=== PATIENT | female | born 1995 | race Caucasian/White ===

== ENCOUNTER → 2017-07-20 | Outpatient (CLI) | payer BC, OTHER ==
[2017-07-21 11:13] LABS: Alpha Fetoprotein (M.O.M) 1.28; B-HCG (M.O.M.) 0.41; Gestational Age (days) 4; Human Chorionic Gonadotropin 6.3 IU/mL; Inhibin A (M.O.M.) 0.93; Maternal Age at EDD (Yrs) 22; Smoker No
== END | disposition home or self-care (01) ==
LOC: LABWHC1 12:33
PROVIDERS: ATTEND Obstetrics & Gynecology
DX: Z34.82 Encounter for supervision of other normal pregnancy, second trimester (principal); Z3A.00 Weeks of gestation of pregnancy not specified
CPT/HCPCS: 36415; 82105; 82677; 84702; 86336

== ENCOUNTER → 2017-08-25 | Outpatient (CLI) | payer BC, OTHER ==
[2017-08-25 14:33] LABS: HCT 31.4 % (34.0-46.0); HGB 9.4 gm/dL (11.4-16.0); Hypochromasia Marked; MCH 23.8 pg (25.0-35.0); MCHC 29.9 g/dL (31.0-37.0); MCV 79.4 fL (80.0-100.0); Mean Platelet Volume 6.5; Platelet Count 265 k/uL (150-450); RBC 3.95 m/uL (3.80-5.40); RDW 15.8 % (11.5-15.5); WBC 9.4 k/uL (3.8-10.6)
== END | disposition home or self-care (01) ==
LOC: LABWHC1 12:56
PROVIDERS: ATTEND Obstetrics & Gynecology
DX: Z34.82 Encounter for supervision of other normal pregnancy, second trimester (principal); Z3A.00 Weeks of gestation of pregnancy not specified
CPT/HCPCS: 36415; 82950; 85027

== ENCOUNTER 2017-11-27 23:10 | Outpatient (CLI) | payer BC, OTHER ==
[2017-11-27 23:58] VITALS: BP 137/60; PULSE 86; RESP 15; TEMP 97.3
--- NOTE | 2017-11-29 18:27 | P.MSEPDOC ---
Presenting Problems - Arrival Data Date of Arrival on Unit: 11/27/17 Time of Arrival on Unit: 23:13 Mode of Transport: Wheelchair - Complaint OB-Reason for Admission/Chief Complaint: Observation/Evaluation Comment: complaints of increased ankle swelling and lost her mucous plug Medical History - Information : 3 Para: 2 Term: 2 : 0 Abortions: Spontaneous or Elective: 0 Number of Living Children: 2 - Gestational Age Gestational Age by ASH (wks/days): 38 Weeks and 2 Days Review of Systems - Review of Systems Constitutional: No problems Breast: No problems ENT: No problems Cardiovascular: No problems Respiratory: No problems Gastrointestinal: No problems Genitourinary: No problems Musculoskeletal: No problems Neurological: No problems Skin: No problems Vital Signs - Temperature Temperature: 97.3 F Temperature Source: Temporal Artery Scan - Pulse Pulse Oximetery Pulse Rate: 86 Pulse Assessment Method: Automatic Cuff - Respirations Respiratory Rate: 15 Oxygen Delivery Method: Room Air - Blood Pressure Right Arm Blood Pressure: 137/60 Blood Pressure Mean: 85 Blood Pressure Source: Automatic Cuff Medical Screen Scoring (Pre) - Cervical Exam Dilation: 1-3 cm = 1 Effacement: More than 50% = 2 Membranes: Intact - Uterine Contractions Frequency: N/A Duration: N/A Intensity: N/A - Maternal Vital Signs Maternal Temperature: N/A Maternal Blood Pressure: N/A Signs of Preeclampsia: N/A Maternal Respirations: N/A - Pain Assessment Pain Location and Character: Abdomen Pain Scale Used: Numeric (1 - 10) Pain Intensity: 3 Pain Management Goal: 2 Pain Description: *Acute, Cramping Pain Radiation Location: none Pain Frequency: Intermittent Pain Duration: 1 Pain Duration Units: Days Pain Behavior: None Exhibited Effects of Pain: none Pain Aggravating Factors: Contractions - Maternal Trauma Maternal Trauma: N/A - Assessment Baseline FHR: 130 Heart Rate - NICHD Category: Category I (Normal) = 0 NST: Reactive Position: N/A Station: N/A - Total Score Total Score (Pre): 3 - Level of Risk Level of Risk: Low (0-5) Physician Notification (Post) - Physician Notified Physician Notified Date: 11/28/17 Physician Notified Time: 00:02 Physician/Practitioner Notified:: Dr Alexander New Order Received: Yes Disposition - Disposition OB Disposition: Discharge to home Discharge Date: 11/28/17 Discharge Time: 00:10 I agree with the RN Medical Screening Exam: Yes Risk & Benefit of care provided described in d/c instruction: Yes Diagnosis: RELATED CONDITIONS, UNSPECIFIED, THIRD TRIMESTER
== END 2017-11-28 00:10 | disposition home or self-care (01) ==
LOC: FBPOP 23:10
PROVIDERS: ATTEND Obstetrics & Gynecology
DX: O26.93 Pregnancy related conditions, unspecified, third trimester (principal); Z3A.38 38 weeks gestation of pregnancy
CPT/HCPCS: 59025; 84112; 99213

== ENCOUNTER 2017-12-05 05:57 | Inpatient (IN) | payer BC, OTHER ==
--- NOTE | 2017-12-04 21:18 | P.HPOB ---
History of Present Illness H&P Date: 12/04/17 Chief Complaint: Induction of labor This is a 22-year-old female 3 para 2 with an estimated date of confinement of 12/10/2017, estimated gestational age of 39-2/7 weeks, who presents to labor and delivery for induction of labor. She admits to good movement. She has been feeling frequent contractions and pressure. Her course has been essentially uncomplicated. labs: Hepatitis B surface antigen-negative Rubella-immune Blood type-O+ Antibody screen-negative RPR-nonreactive HIV-nonreactive Hemoglobin-10.9 Random glucose-69 Quad screen-negative Obstetrical ultrasound-normal anatomy One hour Glucola-113 Group B streptococcus-negative Obstetrical history: . History of 2 vaginal deliveries. Gynecologic history: No history of sexually transmitted diseases. Social history: She is . She is currently attending college. Review of Systems Constitutional: Denies chills, Denies fever Eyes: denies blurred vision, denies pain Ears, nose, mouth and throat: Denies headache, Denies sore throat Cardiovascular: Denies chest pain, Denies shortness of breath Respiratory: Denies cough Gastrointestinal: Reports abdominal pain (Irregular contractions) Genitourinary: Reports pelvic pain, Reports Musculoskeletal: Reports low back pain Integumentary: Denies pruritus, Denies rash Neurological: Denies numbness, Denies weakness Psychiatric: Reports depression, Denies anxiety Past Medical History Past Medical History: Asthma Additional Past Medical History / Comment(s): asthma as child History of Any Multi-Drug Resistant Organisms: None Reported Past Surgical History: Cholecystectomy Past Anesthesia/Blood Transfusion Reactions: No Reported Reaction Past Psychological History: Depression Smoking Status: Never smoker Past Alcohol Use History: None Reported Past Drug Use History: None Reported - Past Family History Mother Family Medical History: Cancer (Cervical cancer) Medications and Allergies Home Medications Medication Instructions Recorded Confirmed Type Pnv,Calcium 72/Iron/Folic Acid 1 tab PO DAILY 09/28/15 11/27/17 History [ Plus Tablet] Allergies Allergy/AdvReac Type Severity Reaction Status Date / Time Penicillins Allergy Itching Verified 11/27/17 23:21 Exam Osteopathic Statement: *. No significant issues noted on an osteopathic structural exam other than those noted in the History and Physical/Consult. HEENT: Within normal limits Heart: Regular rate and rhythm Lungs: Clear to auscultation bilaterally Abdomen: Cervix: 3-1/2 cm/70%/-2 station heart tones: 140s by Doppler Extremities: Negative Homans Assessment and Plan (1) 39 weeks gestation of Status: Acute Code(s): Z3A.39 - 39 WEEKS GESTATION OF SNOMED Code( s): 47597681 Plan: Received with oxytocin induction of labor. Expectant management. Epidural anesthesia if desired.
[2017-12-05] MEDS ORDERED: LIDOCAINE 1% 20 ML VIAL (10MG/ML) FOR IV START INTRADERMA PRN (06:12)
[2017-12-05] MEDS ORDERED: LIDOCAINE 1% (PF) 10 MG/ML (30 ML SDV) SQ PRN (06:12)
[2017-12-05] MEDS ORDERED: OXYTOCIN 10 UNIT/ML 1 ML VIAL IM PRN (06:12)
[2017-12-05] MEDS ORDERED: CARBOPROST TROMETHAMINE 250 MCG/ML 1 ML AMP IM PRN (06:12)
[2017-12-05] MEDS ORDERED: OXYTOCIN 20 UNITS/1000 ML NS 1,000 ML IV SCH ×2 (06:12→12:49)
[2017-12-05] MEDS ORDERED: METHYLERGONOVINE 0.2 MG/ML 1 ML AMP IM PRN (06:12)
[2017-12-05] MEDS ORDERED: TERBUTALINE 1 MG/ML VIAL SQ PRN (06:12)
[2017-12-05] MEDS: LACTATED RINGERS 1,000 ML IV SCH ×2 (06:30→08:56)
[2017-12-05 06:38] LABS: Anisocytosis Slight; Basophils % (A) 0 %; Eosinophils # (A) 0.1 k/uL (0-0.7); Eosinophils % (A) 1 %; HCT 33.5 % (34.0-46.0); HGB 10.3 gm/dL (11.4-16.0); Hypochromasia Marked; Lymphocytes % (A) 20 %; MCH 22.2 pg (25.0-35.0); MCHC 30.7 g/dL (31.0-37.0); MCV 72.3 fL (80.0-100.0); Mean Platelet Volume 6.2; Microcytosis Moderate; Monocytes # (A) 0.4 k/uL (0-1.0); Monocytes % (A) 4 %; Neutrophils # (A) 7.4 k/uL (1.3-7.7); Neutrophils % (A) 74 %; Platelet Count 339 k/uL (150-450); RBC 4.63 m/uL (3.80-5.40); RDW 16.3 % (11.5-15.5)
[2017-12-05 06:42] VITALS: BMI 46.0
[2017-12-05] MEDS ORDERED: SODIUM CHLORIDE 0.9% 100 ML BAG ONE (09:02)
[2017-12-05] MEDS ORDERED: BUPIVACAINE (PF) 0.25% 30 ML VIAL ONE (09:02)
[2017-12-05] MEDS ORDERED: fentaNYL (PF) 50 MCG/ML 5 ML AMP ONE (09:02)
[2017-12-05] MEDS ORDERED: ACETAMINOPHEN TAB 325 MG TAB PO PRN (12:49)
[2017-12-05] MEDS ORDERED: diphenhydrAMINE 50 MG/ML 1 ML VIAL IVP PRN ×2 (12:49)
[2017-12-05] MEDS ORDERED: diphenhydrAMINE 25 MG CAP PO PRN (12:49)
[2017-12-05] MEDS ORDERED: diphenhydrAMINE 50 MG CAP PO PRN (12:49)
[2017-12-05] MEDS ORDERED: LANOLIN CREAM 5 GM TUBE TOPICAL PRN (12:49)
[2017-12-05] MEDS ORDERED: ZOLPIDEM 5 MG TAB PO PRN (12:49)
[2017-12-05] MEDS ORDERED: BENZOCAINE/MENTHOL SPRAY 1 GM/SPRAY AEROSOL TOPICAL PRN (12:49)
[2017-12-05] MEDS ORDERED: IBUPROFEN 600 MG TAB PO PRN (12:49)
[2017-12-05] MEDS ORDERED: SIMETHICONE 80 MG CHEWABLE PO PRN (12:49)
[2017-12-05] MEDS ORDERED: WITCH HAZEL 1 EACH MED..PAD TOPICAL PRN (12:49)
[2017-12-05] MEDS ORDERED: HYDROCORTISONE 2.5% RECTAL CREAM 30 GM TUBE RECTAL PRN (12:49)
--- NOTE | 2017-12-05 13:19 | P.PROBDLV ---
Vaginal Delivery Note - . Vaginal Delivery Note: The patient progressed to complete dilation after oxytocin induction of labor and artificial rupture of membranes with clear fluid noted. She did receive epidural anesthesia. Once reaching complete dilation, her bladder was emptied and she began pushing. Infant's head came to a crown. With one further push, the 's head delivered across the perineum and a left occiput anterior position. After gentle traction was applied, the anterior shoulder did not release. Next I swept my fingers along the posterior shoulder and turned the posterior shoulder inward in a clockwise fashion and with one push she was able to deliver the posterior shoulder immediately followed by the anterior shoulder. The remainder the easily delivered and was placed on mother's abdomen. Brisk cry was noted immediately. Nose and mouth were bulb suctioned after delivery. Cord was clamped and cut. A viable male infant was noted with scores of 9 at 1 minute and 9 at 5 minutes and infant weight of 7 lbs. 2 oz. Placenta delivered shortly thereafter, intact, with a three-vessel cord. Uterus contracted well after oxytocin was given and uterine massage was carried out. Inspection of the perineum revealed no perineal lacerations. Estimated blood loss was approximately 100 mL's. Both mother and infant are in stable condition.
[2017-12-05] MEDS: SENNOSIDES-DOCUSATE SODIUM 1 EACH TAB PO SCH (19:53)
--- NOTE | 2017-12-06 05:55 | P.DS ---
Providers Date of admission: 12/05/17 05:57 Expected date of discharge: 12/06/17 Attending physician: Amber Tong Primary care physician: Stated None - Discharge Diagnosis(es) (1) 39 weeks gestation of Current Visit: Yes Status: Acute Hospital Course: This is a 22-year-old female 3 para 2 at 39-2/7 weeks who presented for induction of labor. She underwent oxytocin induction of labor and delivered vaginally a viable male with scores of 9 at 1 minute and 9 at 5 minutes and infant weight of 7 lbs. 2 oz. Her course has been uncomplicated. She is breast-feeding. Lochia is decreasing. Pain is well- controlled with ibuprofen. Vital signs are stable. Abdomen is soft with fundus firm and nontender. Extremity show negative Homans. Impression is status post vaginal delivery day #1. Plan is to discharge home today. Routine instructions are given. She is advised follow-up in the office in 6 weeks for check. She will be given a prescription for ibuprofen and a breast pump. She is advised to call the office if she has any further questions or concerns prior to her appointment time. Procedures: Oxytocin induction of labor Spontaneous vaginal delivery of a viable male on 12/05/2017 Patient Condition at Discharge: Stable Plan - Discharge Summary New Discharge Prescriptions: New Ibuprofen [Motrin] 600 mg PO Q6HR PRN #60 tab PRN Reason: Mild Pain Or Fever >= 100.5 Continue Pnv,Calcium 72/Iron/Folic Acid [ Plus Tablet] 1 tab PO DAILY Discharge Medication List Pnv,Calcium 72/Iron/Folic Acid [ Plus Tablet] 1 tab PO DAILY 09/28/15 [ History] Ibuprofen [Motrin] 600 mg PO Q6HR PRN #60 tab 12/06/17 [Rx] Follow up Appointment(s)/Referral(s): Amber Tong DO [Doctor of Osteopathic Medicine] - 6 Weeks Activity/Diet/Wound Care/Special Instructions: Instructions 1. Do not begin any exercise program for 3 weeks. 2. Do not resume sexual relations for 3 weeks or longer if uncomfortable. 3. You may take tub baths or showers at any time. 4. You may use tampons if desired after 3 weeks. 5. Keep the area of episiotomy (stitches) clean and dry. 6. If you are not nursing, wear a good fitting, supportive bra during the day and limit fluid intake for at least 1 week to prevent breast engorgement. 7. Call the office, [phone], within the next week to make appointment for your 6 week checkup if it has not already been made. 8. Report any of the following occurrences to the doctor promptly: a. Heavy, excessive bleeding b. Chills, fever c. Burning or frequency of urination d. Pain or redness and breasts if nursing e. Increasing pain or swelling in episiotomy (stitches). In addition to the above instructions, the following additional should be followed: 1. No heavy lifting or straining (exercising) until after 6 week checkup. 2. Keep abdominal incision clean and dry: You may wear a dressing if more comfortable. 3. Make office appointment for 10 days after going home or as instructed by her doctor. Discharge Disposition: HOME SELF-CARE
[2017-12-06 08:16] VITALS: BP 110/61; PULSE 92; RESP 18; TEMP 97.6
[2017-12-06] MEDS: SENNOSIDES-DOCUSATE SODIUM 1 EACH TAB PO SCH (08:16)
[2017-12-06 08:32] LABS: Anisocytosis Slight; Basophils % (A) 0 %; Eosinophils # (A) 0.1 k/uL (0-0.7); Eosinophils % (A) 1 %; HCT 29.4 % (34.0-46.0); Hypochromasia Marked; Lymphocytes # (A) 1.7 k/uL (1.0-4.8); Lymphocytes % (A) 19 %; MCH 22.4 pg (25.0-35.0); MCHC 30.8 g/dL (31.0-37.0); MCV 72.9 fL (80.0-100.0); Mean Platelet Volume 6.6; Microcytosis Moderate; Monocytes # (A) 0.4 k/uL (0-1.0); Monocytes % (A) 4 %; Neutrophils # (A) 6.7 k/uL (1.3-7.7); Neutrophils % (A) 74 %; Platelet Count 208 k/uL (150-450); RBC 4.03 m/uL (3.80-5.40); RDW 16.2 % (11.5-15.5)
[2017-12-06] MEDS ORDERED: SODIUM CHLORIDE 0.9% 100 ML BAG ONE (09:02)
[2017-12-06] MEDS ORDERED: BUPIVACAINE (PF) 0.25% 30 ML VIAL ONE (09:02)
[2017-12-06] MEDS ORDERED: fentaNYL (PF) 50 MCG/ML 5 ML AMP ONE (09:02)
== END 2017-12-06 14:00 | disposition home or self-care (01) | DRG 775 ==
LOC: 4FBP 05:57
PROVIDERS: ADMIT Obstetrics & Gynecology; ATTEND Obstetrics & Gynecology
PROC: 3E033VJ Introduction of Other Hormone into Peripheral Vein, Percutaneous Approach (ICD-10-PCS; principal; 2017-12-05)
PROC: 10E0XZZ Delivery of Products of Conception, External Approach (ICD-10-PCS; principal; 2017-12-05)
PROC: 00HU33Z Insertion of Infusion Device into Spinal Canal, Percutaneous Approach (ICD-10-PCS; principal; 2017-12-05)
PROC: 3E0R3NZ Introduction of Analgesics, Hypnotics, Sedatives into Spinal Canal, Percutaneous Approach (ICD-10-PCS; principal; 2017-12-05)
PROC: 10907ZC Drainage of Amniotic Fluid, Therapeutic from Products of Conception, Via Natural or Artificial Opening (ICD-10-PCS; principal; 2017-12-05)
DX: O80 Encounter for full-term uncomplicated delivery (principal); Z37.0 Single live birth; Z3A.39 39 weeks gestation of pregnancy; Z90.49 Acquired absence of other specified parts of digestive tract
CPT/HCPCS: 85025; 88307

== ENCOUNTER → 2018-01-25 | Outpatient (CLI) | payer BC, OTHER ==
[2018-01-25 12:47] LABS: Basophils % (A) 0 %; Eosinophils # (A) 0.1 k/uL (0-0.7); Eosinophils % (A) 2 %; HCT 35.3 % (34.0-46.0); HGB 10.7 gm/dL (11.4-16.0); Hypochromasia Marked; Lymphocytes # (A) 1.1 k/uL (1.0-4.8); Lymphocytes % (A) 19 %; MCH 22.2 pg (25.0-35.0); MCHC 30.2 g/dL (31.0-37.0); MCV 73.6 fL (80.0-100.0); Mean Platelet Volume 6.5; Microcytosis Slight; Monocytes # (A) 0.3 k/uL (0-1.0); Monocytes % (A) 5 %; Neutrophils # (A) 4.1 k/uL (1.3-7.7); Neutrophils % (A) 71 %; Platelet Count 272 k/uL (150-450); RDW 14.9 % (11.5-15.5); WBC 5.8 k/uL (3.8-10.6)
== END | disposition home or self-care (01) ==
LOC: LABPAT 12:08
PROVIDERS: ATTEND Obstetrics & Gynecology
DX: Z01.812 Encounter for preprocedural laboratory examination (principal)
CPT/HCPCS: 36415; 85025

== ENCOUNTER 2018-02-01 06:10 | Day surgery (SDC) | payer BC, OTHER ==
[2018-01-24 15:37] VITALS: BMI 42.5
--- NOTE | 2018-01-31 19:58 | P.HPOB ---
History of Present Illness H&P Date: 01/31/18 Chief Complaint: Family planning This is a 22-year-old female 3 para 3 who presents for laparoscopic bilateral tubal ligation via fulguration for family planning. She recently delivered her last child and wishes permanent sterilization. Obstetrical history: . History of 3 vaginal deliveries. Gynecologic history: No history of sexual transmitted diseases. Review of Systems Constitutional: Denies chills, Denies fever Eyes: denies blurred vision, denies pain Ears, nose, mouth and throat: Denies headache, Denies sore throat Cardiovascular: Denies chest pain, Denies shortness of breath Respiratory: Denies cough Gastrointestinal: Denies abdominal pain, Denies diarrhea, Denies nausea, Denies vomiting Genitourinary: Denies dysuria, Denies hematuria Musculoskeletal: Denies myalgias Integumentary: Denies pruritus, Denies rash Neurological: Denies numbness, Denies weakness Psychiatric: Reports depression Past Medical History Past Medical History: Asthma Additional Past Medical History / Comment(s): Asthma as child. History of Any Multi-Drug Resistant Organisms: None Reported Past Surgical History: Cholecystectomy, Orthopedic Surgery Additional Past Surgical History / Comment(s): Left wrist surgery. Past Anesthesia/Blood Transfusion Reactions: No Reported Reaction Past Psychological History: Depression Smoking Status: Never smoker Past Alcohol Use History: None Reported Past Drug Use History: None Reported - Past Family History Mother Family Medical History: Cancer Medications and Allergies Home Medications Medication Instructions Recorded Confirmed Type Ibuprofen 200 mg PO DAILY PRN 01/24/18 01/24/18 History Allergies Allergy/AdvReac Type Severity Reaction Status Date / Time Penicillins Allergy Unknown Itching Verified 01/24/18 15:25 Exam Osteopathic Statement: *. No significant issues noted on an osteopathic structural exam other than those noted in the History and Physical/Consult. HEENT: Within normal limits Heart: Regular rate and rhythm Lungs: Clear to auscultation bilaterally Abdomen: Soft, nontender Pelvic exam: Uterus anteverted, nontender, with no adnexal masses or tenderness palpated Extremities: Negative Homans Assessment and Plan (1) Family planning Status: Acute Code(s): Z30.09 - ENCOUNTER FOR OTH GENERAL CNSL AND ADVICE ON CONTRACEPTION SNOMED Code(s): 163658420 Plan: Proceed with laparoscopic bilateral tubal ligation via fulguration. I have discussed the risks, benefits, and alternative therapies for the above- mentioned procedure and for both sedation/anesthesia as well as necessary blood products administration, if indicated, as they pertain to this patient. The patient has indicated her understanding and acceptance of the risks and procedures discussed.
[~2018-02-01 06:10] MED LIST: DEXAMETHASONE SOD PHOSPHATE 10 MG/ML 1 ML VIAL IV ONE; HYDROmorphone 0.5 MG/0.5 ML SYRINGE IVP PRN; LACTATED RINGERS 1,000 ML IV SCH; MIDAZOLAM 2 MG/2 ML VIAL IV PRN; ONDANSETRON 4 MG/2 ML VIAL IVP ONE
[2018-02-01] MEDS ORDERED: LIDOCAINE 1% 20 ML VIAL (10MG/ML) FOR IV START INTRADERMA ONE (07:02)
[2018-02-01] MEDS ORDERED: SCOPOLAMINE 1.5MG/72HR PATCH TRANSDERM ONE (07:07)
[2018-02-01] MEDS ORDERED: GLYCOPYRROLATE 0.2 MG/ML 2 ML VIAL ONE (07:28)
[2018-02-01] MEDS ORDERED: PROPOFOL 10 MG/ML 20 ML VIAL IV ONE (07:28)
[2018-02-01] MEDS ORDERED: LIDOCAINE 1% INJ 10MG/ML (20 ML MDV) ONE (07:28)
[2018-02-01] MEDS ORDERED: MIDAZOLAM 2 MG/2 ML VIAL ONE (07:28)
[2018-02-01] MEDS ORDERED: SUCCINYLCHOLINE CHLORIDE 100 MG/5 ML SYR IV ONE (07:28)
[2018-02-01] MEDS ORDERED: ROCURONIUM BROMIDE 10 MG/ML 10 ML VIAL IV ONE (07:28)
[2018-02-01] MEDS ORDERED: KETOROLAC 30 MG/ML 1 ML VIAL ONE (07:28)
[2018-02-01] MEDS ORDERED: fentaNYL (PF) 50 MCG/ML 2 ML AMP ONE (07:28)
[2018-02-01] MEDS ORDERED: HYDROmorphone (PF) 1 MG/ML ONE (07:28)
[2018-02-01] MEDS ORDERED: NEOSTIGMINE 1 MG/ML 10 ML VIAL ONE (07:28)
[2018-02-01] MEDS ORDERED: ROPIVACAINE 5 MG/ML 30 ML VIAL MISCELLANE ONE ×2 (07:51)
--- NOTE | 2018-02-01 08:04 | P.OP ---
Date of Procedure: 02/01/18 Preoperative Diagnosis: Family planning Postoperative Diagnosis: Same Procedure(s) Performed: Laparoscopic bilateral tubal ligation via fulguration Anesthesia: HAYES Surgeon: Amber Tong Estimated Blood Loss (ml): 20 Pathology: none sent Condition: stable Disposition: same day Indications for Procedure: This is a 22-year-old female 3 para 3 who presents for laparoscopic bilateral tubal ligation via fulguration for family planning. She recently delivered her last child and wishes permanent sterilization. Operative Findings: Uterus is anteverted. Normal uterus tubes and ovaries are noted. Right ovary did have a very small simple-appearing cyst noted. Description of Procedure: The patient is taken to the operating room where she is placed in the dorsal lithotomy position. She is prepped and draped in the normal sterile fashion. Examination is performed under anesthesia. Uterus is found to be in a anteverted position. No adnexal masses were palpated. Next a bivalve speculum was placed in the patient's vagina. A single-tooth tenaculum was used to grasp the anterior lip of the cervix. The uterus was sounded to 7 cm. The kroner uterine manipulator was then inserted through the cervix and the balloon was inflated. The single-tooth tenaculum is removed speculum was removed gloves were changed and attention was turned to the abdomen. The infraumbilical fold was grasped in transverse fashion with 2 Allis clamps. A small transverse incision was made with a scalpel. A hemostat was used to carry the incision down to the underlying layer of fascia. A towel clip was placed above the umbilicus for retraction. A 11 mm disposable bladeless trocar was then inserted into the peritoneal cavity under direct visualization. Once inside, pneumoperitoneum was achieved with CO2 gas. The insert was removed and the camera was placed. Intraperitoneal placement was confirmed. No bleeding was noted. Next the patient was placed in Trendelenburg position. A small stab incision was made suprapubically and a 5 mm disposable bladeless trocar was inserted into the peritoneal cavity under direct visualization. Once inside pelvic contents were inspected. Next a bipolar Kleppinger instrument was placed through the inferior trocar and the midportion of each tube was brought away from other structures and completely fulgurated on approximate 2-3 cm segment of each tube. Excellent hemostasis was noted. Pictures was taken. Pneumoperitoneum was released after the inferior trocar was removed under direct visualization. The upper trocar was then removed. The fascial incision was closed with 0 Vicryl suture in interrupted [id number] stitch. The skin incisions were then closed with 4-0 Vicryl suture in a subcuticular fashion. Incisions were injected with half percent Marcaine. Approximately 8 mL were used. Next the kroner uterine manipulator was removed. Minimal bleeding was noted. All sponge and needle counts are correct. The patient is then taken to recovery room in stable condition.
[2018-02-01 08:24] VITALS: TEMP 97.2
[2018-02-01] MEDS ORDERED: LACTATED RINGERS 1,000 ML IV ONE (09:05)
[2018-02-01 09:24] VITALS: RESP 16
[2018-02-01 11:38] VITALS: BP 102/60; PULSE 60
== END 2018-02-01 12:03 | disposition home or self-care (01) ==
LOC: OR 06:10
PROVIDERS: ATTEND Obstetrics & Gynecology
DX: Z30.2 Encounter for sterilization (principal); J45.909 Unspecified asthma, uncomplicated; Z90.49 Acquired absence of other specified parts of digestive tract; F32.9 Major depressive disorder, single episode, unspecified; Z88.0 Allergy status to penicillin; N83.291 Other ovarian cyst, right side
CPT/HCPCS: 81025; 58670; J2250; J1100; J2710; J2405; J2001; J3010; J1885; J1170; J2795; J0330; J2704

== ENCOUNTER → 2021-09-03 | Outpatient (CLI) | payer BC, OTHER ==
--- NOTE | 2021-09-03 11:02 | USB ---
Reason for exam: clinical finding. Physical Findings: A clinical breast exam by your physician is recommended on an annual basis and results should be correlated with mammographic findings. US Breast RT Right complete breast ultrasound includes all four quadrants, the retroareolar region and axilla. Finding demonstrates a 0.7 x 0.4 x 0.7cm lesion at 12 o'clock and a 0.4 x 0.3 x 0.4cm lesion at 3 o'clock. These results were verbally communicated with the patient and result sheet given to the patient on at 09/03/21. ASSESSMENT: Probably benign, BI-RAD 3 RECOMMENDATION: Ultrasound of the right breast in 6 months. Manage patient on a clinical basis.
== END | disposition home or self-care (01) ==
LOC: RADUSWWP 08:55
PROVIDERS: ATTEND Family Medicine
DX: N64.4 Mastodynia (principal)

== ENCOUNTER → 2022-03-16 | Outpatient (CLI) | payer OTHER ==
--- NOTE | 2022-03-16 11:40 | USB ---
Reason for Exam: Clinical finding. Patient History: 2018, Bilateral Reduction. Technique: Method: Whole Breast Handheld. Findings: The whole breast of both breasts, the axilla of both breasts and the retroareolar of both breasts were scanned. Right breast 12:00 consultations with posterior acoustic shadowing noted. Right breast 4:00 in the area of palpable abnormality 8 cm from nipple demonstrates 4 anechoic cysts. The largest measuring up to 10 mm. The cluster of cysts spans approximately 4.3 cm in greatest dimension. Right breast 5:00 20 cm from nipple inserts anechoic cyst with posterior acoustic enhancement Right breast 7:00 20 cm from nipple 2 anechoic cyst with posterior acoustic enhancement. Right breast 8:00 3 cm from nipple is a heterogenous area measuring 1.1 x 0.7 x 1.0 cm which is hyperechoic with suspected layering fluid fluid level findings overall this likely representing prior post reduction surgery changes in the setting of fat necrosis. Left breast 12:00 3 cm from nipple demonstrates anechoic cyst measuring up to 1.2 x 1.9 x 0.9 cm with posterior acoustic enhancement. Left breast 1:00 20 cm from nipple demonstrates anechoic cyst measuring up to 1.2 cm x 0.9 cm with posterior acoustic enhancement. Left breast 3:00 4 cm from nipple with predominantly hypoechoic mass with hyperechoic foci likely representing calcification with some posterior acoustic shadowing. Area measures roughly 1.4 x 7.0 x 1.0 cm given other findings the breast present that necrosis and/or oil cyst.. Left breast. Overall Assessment: Benign, BI-RAD 2 Management: Screening Mammogram of both breasts in 1 year. A clinical breast exam by your physician is recommended on an annual basis and results should be correlated with mammographic findings. Electronically signed and approved by: Jake Jeter DO
--- NOTE | 2022-03-16 11:42 | MM ---
Reason for Exam: Clinical finding. Patient History: Menarche at age 13. First Full-Term at age 16. Premenopausal. 2018, Bilateral Reduction. Paternal grandmother had breast cancer, age 25. Maternal aunt had breast cancer, age 40. Last menstrual period: 03/01/2022 Tissue Density: There are scattered fibroglandular densities. Findings: Analyzed By CAD. Grouped consultations are seen in the right breast involving the lateral upper quadrant at posterior depth. Additional coarse calcifications are seen at anterior depth posterior to the nipple slightly superiorly. The left breast demonstrates scattered peripherally calcified renal cyst. Overall Assessment: Probably benign, BI-RAD 3 Management: Screening Mammogram of the right breast in 6 months. Group of calcifications within the right breast posterior depth lateral upper quadrant could represent fat necrosis. Attention on short-term follow-up in 6 months to ensure stability. A clinical breast exam by your physician is recommended on an annual basis and results should be correlated with mammographic findings. This exam should not preclude additional follow-up of suspicious palpable abnormalities. Results were given to the patient verbally at the time of exam. Electronically signed and approved by: Jake Jeter DO
== END | disposition home or self-care (01) ==
LOC: RADMAMWWP 09:33
PROVIDERS: ATTEND Family Medicine
DX: R92.1 Mammographic calcification found on diagnostic imaging of breast (principal); N60.02 Solitary cyst of left breast
CPT/HCPCS: 77066; 76641; G0279; 77062

== ENCOUNTER 2022-10-08 12:18 | Emergency (ER) | payer BC, OTHER ==
[2022-10-08 12:40] VITALS: RESP 18; TEMP 98
[2022-10-08] MEDS ORDERED: SODIUM CHLORIDE 0.9% 1,000 ML IV STA (12:46)
[2022-10-08] MEDS ORDERED: KETOROLAC 15 MG/ML 1 ML VIAL IVP STA (12:51)
[2022-10-08] MEDS ORDERED: ONDANSETRON 4 MG/2 ML VIAL IVP STA (12:52)
[2022-10-08 13:21] LABS: Basophils % (A) 0 %; Eosinophils # (A) 0.1 k/uL (0-0.7); Eosinophils % (A) 2 %; HCT 35.9 % (34.0-46.0); HGB 11.6 gm/dL (11.4-16.0); Lymphocytes # (A) 1.4 k/uL (1.0-4.8); Lymphocytes % (A) 24 %; MCH 24.3 pg (25.0-35.0); MCHC 32.3 g/dL (31.0-37.0); MCV 75.3 fL (80.0-100.0); Mean Platelet Volume 7.1; Microcytosis Slight; Monocytes # (A) 0.3 k/uL (0-1.0); Monocytes % (A) 5 %; Neutrophils # (A) 3.7 k/uL (1.3-7.7); Neutrophils % (A) 66 %; Platelet Count 250 k/uL (150-450); RBC 4.77 m/uL (3.80-5.40); RDW 14.8 % (11.5-15.5); WBC 5.6 k/uL (3.8-10.6)
[2022-10-08 13:30] LABS: ALT 27 U/L (4-34); AST 26 U/L (14-36); African American GFR (CKD) >90 (>60 ml/min/1.73 sqM); Alkaline Phosphatase 64 U/L (38-126); Anion Gap 5 mmol/L; Blood Urea Nitrogen 11 mg/dL (7-17); Calcium 8.9 mg/dL (8.4-10.2); Carbon Dioxide 26 mmol/L (22-30); Chloride 104 mmol/L (98-107); Glucose 95 mg/dL (74-99); Lipase 61 U/L (23-300); Non-African American GFR(CKD) >90 (>60 ml/min/1.73 sqM); Potassium 4.4 mmol/L (3.5-5.1); Sodium 135 mmol/L (137-145); Total Bilirubin 0.7 mg/dL (0.2-1.3); Total Protein 7.3 g/dL (6.3-8.2)
[2022-10-08 13:51] LABS: HCG,Qualitative Serum Not Detected
[2022-10-08 14:02] LABS: Appearance,Urine Cloudy (Clear); Bacteria,Urine Rare /hpf; Bilirubin,Urine Negative (Negative); Blood,Urine Negative (Negative); Color,Urine Yellow; Glucose,Urine (UA) Negative (Negative); Ketones,Urine Negative (Negative); Leukocyte Esterase,Urine Large (Negative); Mucus,Urine Few /hpf; Nitrite,Urine Negative (Negative); Protein,Urine Trace (Negative); RBC,Urine 3 /hpf (0-5); Specific Gravity,Urine 1.027 (1.001-1.035); Squamous Epithelial Cell,Urine 11 /hpf (0-4); Urobilinogen,Urine <2.0 mg/dL (<2.0); WBC,Urine 11 /hpf (0-5)
--- NOTE | 2022-10-08 14:14 | ED ---
Abdominal Pain HPI - General Chief Complaint: Abdominal Pain Stated Complaint: abd pain - sent by [facility] Time Seen by Provider: 10/08/22 12:41 Source: patient Mode of arrival: ambulatory Limitations: no limitations - History of Present Illness Initial Comments: She is a 27-year-old female who [facility]. Patient reports intermittent abdominal pain in her right lower abdomen since 4 AM this morning. Describes it as a sharp cramping. There is no radiation. Patient has nausea without any vomiting. No fever or chills. No burning with urination, blood in the urine, vaginal discharge, vaginal bleeding. No concern for sexual transmitted infections. No concern for . Patient has history of cholecystectomy. Patient has regular menstrual periods every month, last period on 10/17/22. Denies history of ovarian cyst. Patient went to urgent care and was sent to the emergency department for further evaluation. - Related Data Home Medications Medication Instructions Recorded Confirmed Ibuprofen 200 mg PO DAILY PRN 01/24/18 02/01/18 Previous Rx's Medication Instructions Recorded Acetaminophen-Codeine 300-30mg 1 tab PO Q4H PRN 3 Days #18 tablet 02/01/18 [Tylenol w/codeine #3] Ibuprofen [Motrin] 800 mg PO Q8HR PRN #30 tab 10/08/22 Ondansetron Odt [Zofran Odt] 4 mg PO Q8HR PRN #10 tab 10/08/22 Allergies Allergy/AdvReac Type Severity Reaction Status Date / Time Penicillins Allergy Unknown Itching Verified 10/08/22 12:39 Review of Systems ROS Statement: Those systems with pertinent positive or pertinent negative responses have been documented in the HPI. ROS Other: All systems not noted in ROS Statement are negative. Past Medical History Past Medical History: Asthma Additional Past Medical History / Comment(s): Asthma as child. History of Any Multi-Drug Resistant Organisms: None Reported Past Surgical History: Cholecystectomy, Orthopedic Surgery Additional Past Surgical History / Comment(s): Left wrist surgery. Past Anesthesia/Blood Transfusion Reactions: No Reported Reaction Past Psychological History: No Psychological Hx Reported Smoking Status: Never smoker Past Alcohol Use History: None Reported Past Drug Use History: None Reported - Past Family History Mother Family Medical History: Cancer General Exam Limitations: no limitations General appearance: alert, in no apparent distress Head exam: Present: atraumatic, normocephalic, normal inspection Neck exam: Present: normal inspection. Absent: tenderness, meningismus, lymphadenopathy Respiratory exam: Present: normal lung sounds bilaterally. Absent: respiratory distress, wheezes, rales, rhonchi, stridor Cardiovascular Exam: Present: regular rate, normal rhythm, normal heart sounds. Absent: systolic murmur, diastolic murmur, rubs, gallop, clicks GI/Abdominal exam: Present: soft, normal bowel sounds. Absent: distended, tenderness, guarding, rebound, rigid Neurological exam: Present: alert, oriented X3, CN II-XII intact Psychiatric exam: Present: normal affect, normal mood Skin exam: Present: warm, dry, intact, normal color. Absent: rash Course Vital Signs 10/08/22 10/08/22 12:37 14:40 Temperature 98 F Pulse Rate 99 65 Respiratory 18 18 Rate Blood Pressure 101/55 113/47 O2 Sat by Pulse 96 100 Oximetry Medical Decision Making - Medical Decision Making Was pt. sent in by a medical professional or institution ([facility], [employer], urgent care, hospital, or half-way...) When possible be specific @ -No Did you speak to anyone other than the patient for history (EMS, parent, family, police, friend...)? What history was obtained from this source @ -No Did you review nursing and triage notes (agree or disagree)? Why? @ -I reviewed and agree with nursing and triage notes Were old charts reviewed (outside hosp., previous admission, EMS record, old EKG, old radiological studies, urgent care reports/EKG's, half-way records)? Report findings @ -No old charts were reviewed Differential Diagnosis (chest pain, altered mental status, abdominal pain women, abdominal pain men, vaginal bleeding, weakness, fever, dyspnea, syncope, headache, dizziness, GI bleed, back pain, seizure, CVA, palpatations, mental health)? @ -Differential Abdominal Pain Women: Appendicitis, Cholecystitis, diverticulosis, ischemic bowel, pancreatitis, hepatitis, UTI, gastroenteritis, AAA, incarcerated hernia, bowel obstruction, constipation, inflammatory bowel, hepatitis, peptic ulcer disease, splenic infarction, perforated viscus, vulvitis, ovarian torsion, PID, kidney stone, placenta abruption, this is not meant to be an all-inclusive list EKG interpreted by me (3pts min.). @ -As above X-rays interpreted by me (1pt min.). @ -None done CT interpreted by me (1pt min.). @ -None done U/S interpreted by me (1pt. min.). @ -No. Ultrasound report shows concern for ruptured hemorrhagic cyst involving the right ovary What testing was considered but not performed or refused? (CT, X-rays, U/S, labs)? Why? @ -None What meds were considered but not given or refused? Why? @ -None Did you discuss the management of the patient with other professionals (professionals i.e. , PA, [employer], lab, RT, psych nurse, social staff worker, hospital admitting clerk, teacher, credit administration officer, immigration case manager)? Give summary @ -No Was smoking cessation discussed for >3mins.? @ -No Was critical care preformed (if so, how long)? @ -No Were there social determinants of health that impacted care today? How? (Homelessness, low income, unemployed, alcoholism, drug addiction, transportation, low edu. Level, literacy, decrease access to med. care, shelter, rehab)? @ -No Was there de-escalation of care discussed even if they declined (Discuss DNR or withdrawal of care, Hospice)? DNR status @ -No What co-morbidities impacted this encounter? (DM, HTN, Smoking, COPD, CAD, Cancer, CVA, ARF, Chemo, Hep., AIDS, mental health diagnosis, sleep apnea, morbid obesity)? @ -None Was patient admitted / discharged? Hospital course, mention meds given and route, prescriptions, significant lab abnormalities, going to OR and other pertinent info. @ -Patient presenting with pain in her right lower quadrant. No vomiting. No fever. The abdomen is soft and nontender. Laboratory studies obtained. No leukocytosis. There is mild hyponatremia which was treated with IV bolus. Ultrasound report concerning for ruptured hemorrhagic cyst involving the right ovary. Pain and nausea control. Results discussed with patient. This is a well- appearing hemodynamically stable patient with a probable ruptured ovarian cyst. Hemoglobin is normal, the abdomen is soft and nontender, pain is controlled. Patient in stable medical condition for discharge. She will follow-up with her associate professor of counseling. Undiagnosed new problem with uncertain prognosis? @ -No Drug Therapy requiring intensive monitoring for toxicity (Heparin, Nitro, Insulin, Cardizem)? @ -No Were any procedures done? @ -No Diagnosis/symptom? @ -right ovarian cyst Acute, or Chronic, or Acute on Chronic? @ -acute Uncomplicated (without systemic symptoms) or Complicated (systemic symptoms)? @ -uncomplicated Side effects of treatment? @ -No Exacerbation, Progression, or Severe Exacerbation? @ -No Poses a threat to life or bodily function? How? (Chest pain, USA, PR, pneumonia, PE, COPD, DKA, ARF, appy, cholecystitis, CVA, Diverticulitis, Homicidal, Suicidal, threat to staff... and all critical care pts) @ -[No] Dr. Soler is my attending - Lab Data Result diagrams: 10/08/22 13:04 10/08/22 13:04 Lab Results 10/08/22 10/08/22 10/08/22 Range/Units 13:04 13:04 13:04 WBC 5.6 (3.8-10.6) k/uL RBC 4.77 (3.80-5.40) m/uL Hgb 11.6 (11.4-16.0) gm/dL Hct 35.9 (34.0-46.0) % MCV 75.3 L (80.0-100.0) fL MCH 24.3 L (25.0-35.0) pg MCHC 32.3 (31.0-37.0) g/dL RDW 14.8 (11.5-15.5) % Plt Count 250 (150-450) k/uL MPV 7.1 Neutrophils % 66 % Lymphocytes % 24 % Monocytes % 5 % Eosinophils % 2 % Basophils % 0 % Neutrophils # 3.7 (1.3-7.7) k/uL Lymphocytes # 1.4 (1.0-4.8) k/uL Monocytes # 0.3 (0-1.0) k/uL Eosinophils # 0.1 (0-0.7) k/uL Basophils # 0.0 (0-0.2) k/uL Microcytosis Slight Sodium 135 L (137-145) mmol/L Potassium 4.4 (3.5-5.1) mmol/L Chloride 104 (98-107) mmol/L Carbon Dioxide 26 (22-30) mmol/L Anion Gap 5 mmol/L BUN 11 (7-17) mg/dL Creatinine 0.86 (0.52-1.04) mg/dL Est GFR (CKD-EPI)AfAm >90 (>60 ml/min/1.73 sqM) Est GFR (CKD-EPI)NonAf >90 (>60 ml/min/1.73 sqM) Glucose 95 (74-99) mg/dL Plasma Lactic Acid Wilson 0.6 L (0.7-2.0) mmol/L Calcium 8.9 (8.4-10.2) mg/dL Total Bilirubin 0.7 (0.2-1.3) mg/dL AST 26 (14-36) U/L ALT 27 (4-34) U/L Alkaline Phosphatase 64 (38-126) U/L Total Protein 7.3 (6.3-8.2) g/dL Albumin 4.0 (3.5-5.0) g/dL Lipase 61 (23-300) U/L HCG, Qual Not Detected Urine Color Urine Appearance (Clear) Urine pH (5.0-8.0) Ur Specific [place] (1.001-1.035) Urine Protein (Negative) Urine Glucose (UA) (Negative) Urine Ketones (Negative) Urine Blood (Negative) Urine Nitrite (Negative) Urine Bilirubin (Negative) Urine Urobilinogen (<2.0) mg/dL Ur Leukocyte Esterase (Negative) Urine RBC (0-5) /hpf Urine WBC (0-5) /hpf Ur Squamous Epith Cells (0-4) /hpf Urine Bacteria (None) /hpf Urine Mucus (None) /hpf 10/08/22 Range/Units 13:04 WBC (3.8-10.6) k/uL RBC (3.80-5.40) m/uL Hgb (11.4-16.0) gm/dL Hct (34.0-46.0) % MCV (80.0-100.0) fL MCH (25.0-35.0) pg MCHC (31.0-37.0) g/dL RDW (11.5-15.5) % Plt Count (150-450) k/uL MPV Neutrophils % % Lymphocytes % % Monocytes % % Eosinophils % % Basophils % % Neutrophils # (1.3-7.7) k/uL Lymphocytes # (1.0-4.8) k/uL Monocytes # (0-1.0) k/uL Eosinophils # (0-0.7) k/uL Basophils # (0-0.2) k/uL Microcytosis Sodium (137-145) mmol/L Potassium (3.5-5.1) mmol/L Chloride (98-107) mmol/L Carbon Dioxide (22-30) mmol/L Anion Gap mmol/L BUN (7-17) mg/dL Creatinine (0.52-1.04) mg/dL Est GFR (CKD-EPI)AfAm (>60 ml/min/1.73 sqM) Est GFR (CKD-EPI)NonAf (>60 ml/min/1.73 sqM) Glucose (74-99) mg/dL Plasma Lactic Acid Wilson (0.7-2.0) mmol/L Calcium (8.4-10.2) mg/dL Total Bilirubin (0.2-1.3) mg/dL AST (14-36) U/L ALT (4-34) U/L Alkaline Phosphatase (38-126) U/L Total Protein (6.3-8.2) g/dL Albumin (3.5-5.0) g/dL Lipase (23-300) U/L HCG, Qual Urine Color Yellow Urine Appearance Cloudy H (Clear) Urine pH 6.0 (5.0-8.0) Ur Specific [place] 1.027 (1.001-1.035) Urine Protein Trace H (Negative) Urine Glucose (UA) Negative (Negative) Urine Ketones Negative (Negative) Urine Blood Negative (Negative) Urine Nitrite Negative (Negative) Urine Bilirubin Negative (Negative) Urine Urobilinogen <2.0 (<2.0) mg/dL Ur Leukocyte Esterase Large H (Negative) Urine RBC 3 (0-5) /hpf Urine WBC 11 H (0-5) /hpf Ur Squamous Epith Cells 11 H (0-4) /hpf Urine Bacteria Rare H (None) /hpf Urine Mucus Few H (None) /hpf Disposition Clinical Impression: Ovarian cyst Disposition: HOME SELF-CARE Condition: Good Instructions (If sedation given, give patient instructions): Ruptured Ovarian Cyst (ED) Additional Instructions: Take medication as directed. Follow-up with associate professor of counseling in 1-2 days. Return to emergency department if you experience new, concerning, or worsening symptoms. Prescriptions: Ibuprofen [Motrin] 800 mg PO Q8HR PRN #30 tab PRN Reason: Pain Ondansetron Odt [Zofran Odt] 4 mg PO Q8HR PRN #10 tab PRN Reason: Nausea Is patient prescribed a controlled substance at d/c from ED?: No Referrals: Adriano Em MD [Primary Care Provider] - 1-2 days Time of Disposition: 15:14
[2022-10-08 14:44] VITALS: BP 113/47; PULSE 65
--- NOTE | 2022-10-08 14:48 | US ---
EXAMINATION TYPE: US transvaginal DATE OF EXAM: 10/08/2022 COMPARISON: OB US 2012 CLINICAL HISTORY: right pelvic pain. Right pelvic pain. G0. TECHNIQUE: Transvaginal (TV). Date of LMP: 09/16/2022 EXAM MEASUREMENTS: Uterus: 8.9 x 5.2 x 4.1 cm Endometrial Stripe: 0.65 cm Right Ovary: Not seen with certainty Left Ovary: 2.2 x 2.0 x 2.8 cm 1. Uterus: Anteverted Subcentimeter anechoic areas in cervix. 2. Endometrium: Measures 0.65 cm. There appears to be possible complex fluid within: 1.7 x 1.7 x 0.8 cm. 3. Right Ovary: Not seen with certainty 4. Left Ovary: follicles seen Spectral, color and waveform doppler imaging shows good arterial and venous flow within the left ov ciaran. Right ovary not seen with certainty, area in right adnexa shows arterial and venous flow. 5. Bilateral Adnexa: Complex area seen within the right adnexa: 5.0 x 4.0 x 3.7 cm. -Question rig ht ovarian tissue versus other. Possible enlarged right ovary. *Free fluid seen within right adnexa adjacent to area measured. 6. Posterior cul-de-sac: Fluid seen within. IMPRESSION: 1. Complex endometrial fluid near its fundal component. This is of uncertain etiology and may reflect blood byproducts. Correlate with beta-hCG. 2. Complex right adnexal collection measuring 5 x 4 x 3.7 cm areas of uncertain etiology and could re flect complex cyst however, hemorrhagic cyst, mass of other etiology is not excluded. Again correlati on beta-hCG is advised as ectopic is within the differential.
== END 2022-10-08 15:27 | disposition home or self-care (01) ==
LOC: EC 12:18
DX: N83.201 Unspecified ovarian cyst, right side (principal); J45.909 Unspecified asthma, uncomplicated; Z88.0 Allergy status to penicillin; Z90.49 Acquired absence of other specified parts of digestive tract
CPT/HCPCS: 36415; 76830; 80053; 81001; 83605; 83690; 84703; 85025; 93976; 96361; 96374; 96375; 99284

== ENCOUNTER 2023-02-07 06:15 | Emergency (ER) | payer BC, OTHER ==
[2023-02-07] MEDS ORDERED: KETOROLAC 15 MG/ML 1 ML VIAL IVP STA (06:35)
--- NOTE | 2023-02-07 06:40 | ED ---
General Adult HPI - General Chief complaint: Abdominal Pain Stated complaint: Pain in right side Time Seen by Provider: 02/07/23 06:26 Source: patient, RN notes reviewed, old records reviewed Mode of arrival: ambulatory Limitations: no limitations - History of Present Illness Initial comments: Nontoxic-appearing morbidly obese 27-year-old female presents to the emergency room with complaints of right lower quadrant abdominal pain that woke her from sleep at 4:00 this morning. Patient states she had tubal ligation in the past. Last menstrual period was January 11. No vaginal discharge or bleeding. No dysuria. Last BM two days ago. Has had this similar pain in the past and was told was a hemorrhagic cyst rupture. She has not seen gynecology. States this is worse than last time. Does have a history of asthma, cholecystectomy -: hour(s) (2) Location: abdomen (RLQ) Severity scale (1-10): 10 Quality: constant Consistency: constant Improves with: other (leaning forward) Worsens with: other (sitting upright) Associated Symptoms: denies other symptoms Treatments Prior to Arrival: none - Related Data Home Medications Medication Instructions Recorded Confirmed Ibuprofen 200 mg PO DAILY PRN 01/24/18 02/01/18 Previous Rx's Medication Instructions Recorded Acetaminophen-Codeine 300-30mg 1 tab PO Q4H PRN 3 Days #18 tablet 02/01/18 [Tylenol w/codeine #3] Ibuprofen [Motrin] 800 mg PO Q8HR PRN #30 tab 10/08/22 Ondansetron Odt [Zofran Odt] 4 mg PO Q8HR PRN #10 tab 10/08/22 Allergies Allergy/AdvReac Type Severity Reaction Status Date / Time Penicillins Allergy Unknown Itching Verified 02/07/23 06:25 Patient : No (tubal) Review of Systems ROS Statement: Those systems with pertinent positive or pertinent negative responses have been documented in the HPI. ROS Other: All systems not noted in ROS Statement are negative. Past Medical History Past Medical History: Asthma Additional Past Medical History / Comment(s): Asthma as child. History of Any Multi-Drug Resistant Organisms: None Reported Past Surgical History: Cholecystectomy, Orthopedic Surgery Additional Past Surgical History / Comment(s): Left wrist surgery. Past Anesthesia/Blood Transfusion Reactions: No Reported Reaction Past Psychological History: No Psychological Hx Reported Smoking Status: Never smoker Past Alcohol Use History: None Reported Past Drug Use History: None Reported - Past Family History Mother Family Medical History: Cancer General Exam Limitations: no limitations General appearance: alert Head exam: Present: atraumatic Eye exam: Present: normal appearance. Absent: scleral icterus, conjunctival injection, periorbital swelling ENT exam: Present: mucous membranes moist Neck exam: Present: full ROM. Absent: tenderness, meningismus Respiratory exam: Absent: respiratory distress, accessory muscle use Cardiovascular Exam: Present: regular rate GI/Abdominal exam: Present: soft, tenderness (RLQ). Absent: distended, guarding, rebound, rigid Extremities exam: Present: full ROM, normal capillary refill. Absent: tenderness, calf tenderness Back exam: Present: full ROM. Absent: tenderness, CVA tenderness (R), rash noted Neurological exam: Present: alert, oriented X3 Psychiatric exam: Present: normal affect, normal mood Skin exam: Present: warm, dry, normal color. Absent: cyanosis, diaphoretic, petechiae, pallor Course Vital Signs 02/07/23 02/07/23 06:24 09:15 Temperature 97.9 F 98.1 F Pulse Rate 73 54 L Respiratory 18 16 Rate Blood Pressure 119/82 106/72 O2 Sat by Pulse 97 100 Oximetry Medical Decision Making - Medical Decision Making Was pt. sent in by a medical professional or institution ([facility], [facility] STATE TESTER, urgent care, hospital, or long-term...) When possible be specific @ -No Did you speak to anyone other than the patient for history (EMS, parent, family, police, friend...)? What history was obtained from this source @ -No Did you review nursing and triage notes (agree or disagree)? Why? @ -I reviewed and agree with nursing and triage notes Were old charts reviewed (outside hosp., previous admission, EMS record, old EKG, old radiological studies, urgent care reports/EKG's, long-term records)? Report findings @ -ER visit 10/08/22. Patient seen for similar right-sided abdominal pain for 4:30 in the morning on 10/08/2022. 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 Differential Diagnosis (chest pain, altered mental status, abdominal pain women, abdominal pain men, vaginal bleeding, weakness, fever, dyspnea, syncope, headach e, dizziness, GI bleed, back pain, seizure, CVA, palpatations, mental health, musculoskeletal)? @ -Differential Abdominal Pain Women: Appendicitis, Cholecystitis, diverticulosis, ischemic bowel, pancreatitis, hepatitis, UTI, gastroenteritis, AAA, incarcerated hernia, bowel obstruction, constipation, inflammatory bowel, hepatitis, peptic ulcer disease, splenic infarction, perforated viscus, vulvitis, ovarian torsion, PID, kidney stone, placenta abruption, this is not meant to be an all-inclusive list EKG interpreted by me (3pts min.). @ -As above X-rays interpreted by me (1pt min.). @ -None done CT interpreted by me (1pt min.). @ -None done U/S interpreted by me (1pt. min.). @ -no What testing was considered but not performed or refused? (CT, X-rays, U/S, labs)? Why? @ -None What meds were considered but not given or refused? Why? @ -None Did you discuss the management of the patient with other professionals (professionals i.e. , PA, SOLID STATE TESTER, lab, RT, psych nurse, social service agency director, flight crew scheduler, teacher, vice squad police officer, case assembler)? Give summary @ -No Was smoking cessation discussed for >3mins.? @ -No Was critical care preformed (if so, how long)? @ -No Were there social determinants of health that impacted care today? How? (Homelessness, low income, unemployed, alcoholism, drug addiction, transportation, low edu. Level, literacy, decrease access to med. care, intermediate, rehab)? @ -No Was there de-escalation of care discussed even if they declined (Discuss DNR or withdrawal of care, Hospice)? DNR status @ -No What co-morbidities impacted this encounter? (DM, HTN, Smoking, COPD, CAD, Cancer, CVA, ARF, Chemo, Hep., AIDS, mental health diagnosis, sleep apnea, morbid obesity)? @ -asthma, cholecystectomy Was patient admitted / discharged? Hospital course, mention meds given and route, prescriptions, significant lab abnormalities, going to OR and other pertinent info. @ -Discharged Nontoxic-appearing morbidly obese 27-year-old female presents to the emergency room with complaints of right lower quadrant abdominal pain that woke her from sleep at 4:00 this morning. Patient states she had tubal ligation in the past. Last menstrual period was January 11. No vaginal discharge or bleeding. No dysuria. Last BM two days ago. Has had this similar pain in the past and was to ld was a hemorrhagic cyst rupture. She has not seen gynecology. States this is worse than last time. Labs show no evidence of leukocytosis. Hemoglobin and hematocrit are stable. Electrolytes are unremarkable. Urinalysis negative for . Ultrasound transvaginal shows no evidence for acute process. Exam slightly limited due to patient body habitus in depth organs. Right ovary cystic a 2.2 x 2.5 x 2.0 with low level internal echoes. Left ovary normal. Patient was given Toradol with some improvement in her pain. She was directed to follow up with TERMINAL MANAGER for continuation of care. Return to the emergency room with a new or concerning symptoms including increased pain, persistent nausea vomiting or fevers. She is agreeable to this plan of care. Patient was given a work note as requested. Case discussed with Dr. Yuan. Undiagnosed new problem with uncertain prognosis? @ -No Drug Therapy requiring intensive monitoring for toxicity (Heparin, Nitro, Insulin, Cardizem)? @ -No Were any procedures done? @ -No Diagnosis/symptom? @ -Abdominal pain, right ovarian cyst Acute, or Chronic, or Acute on Chronic? @ -acute Uncomplicated (without systemic symptoms) or Complicated (systemic symptoms)? @ -Uncomplicated Side effects of treatment? @ -No Exacerbation, Progression, or Severe Exacerbation? @ -No Poses a threat to life or bodily function? How? (Chest pain, USA, SD, pneumonia, PE, COPD, DKA, ARF, appy, cholecystitis, CVA, Diverticulitis, Homicidal, Lazo icidal, threat to staff... and all critical care pts) @ -No - Lab Data Result diagrams: 02/07/23 06:50 02/07/23 06:50 Lab Results 02/07/23 02/07/23 02/07/23 Range/Units 06:50 06:50 06:50 WBC 5.4 (3.8-10.6) k/uL RBC 4.60 (3.80-5.40) m/uL Hgb 11.5 (11.4-16.0) gm/dL Hct 34.6 (34.0-46.0) % MCV 75.2 L (80.0-100.0) fL MCH 24.9 L (25.0-35.0) pg MCHC 33.1 (31.0-37.0) g/dL RDW 15.0 (11.5-15.5) % Plt Count 229 (150-450) k/uL MPV 7.6 Neutrophils % 66 % Lymphocytes % 25 % Monocytes % 4 % Eosinophils % 3 % Basophils % 1 % Neutrophils # 3.6 (1.3-7.7) k/uL Lymphocytes # 1.4 (1.0-4.8) k/uL Monocytes # 0.2 (0-1.0) k/uL Eosinophils # 0.2 (0-0.7) k/uL Basophils # 0.0 (0-0.2) k/uL Hypochromasia Slight Microcytosis Slight Sodium 134 L (137-145) mmol/L Potassium 3.8 (3.5-5.1) mmol/L Chloride 103 (98-107) mmol/L Carbon Dioxide 22 (22-30) mmol/L Anion Gap 9 mmol/L BUN 14 (7-17) mg/dL Creatinine 0.86 (0.52-1.04) mg/dL Est GFR (CKD-EPI)AfAm >90 (>60 ml/min/1.73 sqM) Est GFR (CKD-EPI)NonAf >90 (>60 ml/min/1.73 sqM) Glucose 93 (74-99) mg/dL Calcium 8.6 (8.4-10.2) mg/dL Total Bilirubin 0.6 (0.2-1.3) mg/dL AST 19 (14-36) U/L ALT 20 (4-34) U/L Alkaline Phosphatase 62 (38-126) U/L Total Protein 7.0 (6.3-8.2) g/dL Albumin 3.9 (3.5-5.0) g/dL Amylase 68 (30-110) U/L Lipase 78 (23-300) U/L Urine Color Light Red Urine Appearance Cloudy H (Clear) Urine pH 5.5 (5.0-8.0) Ur Specific Margaret 1.029 (1.001-1.035) Urine Protein Trace H (Negative) Urine Glucose (UA) Negative (Negative) Urine Ketones Negative (Negative) Urine Blood Trace H (Negative) Urine Nitrite Negative (Negative) Urine Bilirubin Negative (Negative) Urine Urobilinogen <2.0 (<2.0) mg/dL Ur Leukocyte Esterase Moderate H (Negative) Urine RBC 2 (0-5) /hpf Urine WBC 1 (0-5) /hpf Ur Squamous Epith Cells 8 H (0-4) /hpf Urine Bacteria Rare H (None) /hpf Urine Mucus Occasional H (None) /hpf Urine HCG, Qual (Not Detectd) 02/07/23 Range/Units 06:50 WBC (3.8-10.6) k/uL RBC (3.80-5.40) m/uL Hgb (11.4-16.0) gm/dL Hct (34.0-46.0) % MCV (80.0-100.0) fL MCH (25.0-35.0) pg MCHC (31.0-37.0) g/dL RDW (11.5-15.5) % Plt Count (150-450) k/uL MPV Neutrophils % % Lymphocytes % % Monocytes % % Eosinophils % % Basophils % % Neutrophils # (1.3-7.7) k/uL Lymphocytes # (1.0-4.8) k/uL Monocytes # (0-1.0) k/uL Eosinophils # (0-0.7) k/uL Basophils # (0-0.2) k/uL Hypochromasia Microcytosis Sodium (137-145) mmol/L Potassium (3.5-5.1) mmol/L Chloride (98-107) mmol/L Carbon Dioxide (22-30) mmol/L Anion Gap mmol/L BUN (7-17) mg/dL Creatinine (0.52-1.04) mg/dL Est GFR (CKD-EPI)AfAm (>60 ml/min/1.73 sqM) Est GFR (CKD-EPI)NonAf (>60 ml/min/1.73 sqM) Glucose (74-99) mg/dL Calcium (8.4-10.2) mg/dL Total Bilirubin (0.2-1.3) mg/dL AST (14-36) U/L ALT (4-34) U/L Alkaline Phosphatase (38-126) U/L Total Protein (6.3-8.2) g/dL Albumin (3.5-5.0) g/dL Amylase (30-110) U/L Lipase (23-300) U/L Urine Color Urine Appearance (Clear) Urine pH (5.0-8.0) Ur Specific Margaret (1.001-1.035) Urine Protein (Negative) Urine Glucose (UA) (Negative) Urine Ketones (Negative) Urine Blood (Negative) Urine Nitrite (Negative) Urine Bilirubin (Negative) Urine Urobilinogen (<2.0) mg/dL Ur Leukocyte Esterase (Negative) Urine RBC (0-5) /hpf Urine WBC (0-5) /hpf Ur Squamous Epith Cells (0-4) /hpf Urine Bacteria (None) /hpf Urine Mucus (None) /hpf Urine HCG, Qual Not Detected (Not Detectd) Disposition Clinical Impression: Abdominal pain, Ovarian cyst Disposition: HOME SELF-CARE Condition: Good Instructions (If sedation given, give patient instructions): Ovarian Cyst (ED), Abdominal Pain (ED) Additional Instructions: Please follow-up with TERMINAL MANAGER for continuation of care. Tylenol and Motrin for pain. Warm compresses. Follow-up with your primary care doctor this week. Return to the emergency room with any new or concerning symptoms including fevers, increased pain or persistent nausea vomiting. Is patient prescribed a controlled substance at d/c from ED?: No Referrals: Adriano Em MD [Primary Care Provider] - 1-2 days Time of Disposition: 08:58
[2023-02-07 07:13] LABS: Basophils % (A) 1 %; Eosinophils # (A) 0.2 k/uL (0-0.7); Eosinophils % (A) 3 %; HCT 34.6 % (34.0-46.0); HGB 11.5 gm/dL (11.4-16.0); Hypochromasia Slight; Lymphocytes # (A) 1.4 k/uL (1.0-4.8); Lymphocytes % (A) 25 %; MCH 24.9 pg (25.0-35.0); MCHC 33.1 g/dL (31.0-37.0); MCV 75.2 fL (80.0-100.0); Mean Platelet Volume 7.6; Microcytosis Slight; Monocytes # (A) 0.2 k/uL (0-1.0); Monocytes % (A) 4 %; Neutrophils # (A) 3.6 k/uL (1.3-7.7); Neutrophils % (A) 66 %; Platelet Count 229 k/uL (150-450); WBC 5.4 k/uL (3.8-10.6)
[2023-02-07 07:24] LABS: Appearance,Urine Cloudy (Clear); Bacteria,Urine Rare /hpf; Bilirubin,Urine Negative (Negative); Blood,Urine Trace (Negative); Color,Urine Light Red; Glucose,Urine (UA) Negative (Negative); Ketones,Urine Negative (Negative); Leukocyte Esterase,Urine Moderate (Negative); Mucus,Urine Occasional /hpf; Nitrite,Urine Negative (Negative); PH, Urine 5.5 (5.0-8.0); Protein,Urine Trace (Negative); RBC,Urine 2 /hpf (0-5); Specific Gravity,Urine 1.029 (1.001-1.035); Squamous Epithelial Cell,Urine 8 /hpf (0-4); Urobilinogen,Urine <2.0 mg/dL (<2.0); WBC,Urine 1 /hpf (0-5)
[2023-02-07 07:44] LABS: ALT 20 U/L (4-34); AST 19 U/L (14-36); African American GFR (CKD) >90 (>60 ml/min/1.73 sqM); Albumin 3.9 g/dL (3.5-5.0); Alkaline Phosphatase 62 U/L (38-126); Amylase 68 U/L (30-110); Anion Gap 9 mmol/L; Blood Urea Nitrogen 14 mg/dL (7-17); Calcium 8.6 mg/dL (8.4-10.2); Carbon Dioxide 22 mmol/L (22-30); Chloride 103 mmol/L (98-107); Glucose 93 mg/dL (74-99); Lipase 78 U/L (23-300); Non-African American GFR(CKD) >90 (>60 ml/min/1.73 sqM); Potassium 3.8 mmol/L (3.5-5.1); Sodium 134 mmol/L (137-145); Total Bilirubin 0.6 mg/dL (0.2-1.3)
--- NOTE | 2023-02-07 08:29 | US ---
EXAMINATION TYPE: US transvaginal DATE OF EXAM: 02/07/2023 COMPARISON: 10/08/2022 CLINICAL INDICATION: Female, 27 years old with history of RLQ pain hx hem cyst; RLQ pain began at 4:3 0 this morning, hx of cyst on Rt ovary TECHNIQUE: Transvaginal (TV). Date of LMP: 01/11/23 EXAM MEASUREMENTS: Uterus: 9.6x4.4x6.2 cm Endometrial Stripe: 1.4 cm Right Ovary: 3.9x3.0x3.6 cm Left Ovary: 2.7x2.2x1.8 cm 1. Uterus: Anteverted wnl 2. Endometrium: wnl 3. Right Ovary: cystic area: 2.2x2.5x2.0cm with low-level internal echoes. 4. Left Ovary: wnl Spectral, color and waveform doppler imaging shows good arterial and venous flow within the ovaries ; there is no evidence for ovarian torsion. 5. Bilateral Adnexa: Obscured by overlying bowel gas 6. Posterior cul-de-sac: free fluid noted exam slightly limited due to patient body habitus and depth of organs for doppler evaluation IMPRESSION: 1. No evidence for acute process. 2. Appropriate arterial and venous spectral waveforms to the ovaries. 3. Endometrium within normal limits for thickness. 4. Right ovarian hemorrhagic cyst measuring up to 2.5 cm.
[2023-02-07 09:17] VITALS: BP 106/72; PULSE 54; RESP 16; TEMP 98.1
== END 2023-02-07 09:17 | disposition home or self-care (01) ==
LOC: EC 06:15
DX: N83.201 Unspecified ovarian cyst, right side (principal); J45.909 Unspecified asthma, uncomplicated; Z88.0 Allergy status to penicillin
CPT/HCPCS: 36415; 80053; 82150; 83690; 85025; 81001; 81025; 76830; 99285; 96374; J1885

== ENCOUNTER → 2024-07-26 | Outpatient (CLI) | payer BC ==
--- NOTE | 2024-07-27 12:38 | MR ---
MRI right wrist HISTORY: Pain for 5 years. COMPARISON: None. TECHNIQUE: Multiecho multiplanar images of the right wrist were obtained. FINDINGS: There is no bone contusion or fracture. There is no flexor or extensor tendinitis or tearing synovitis. On the volar and ulnar aspect of the wrist there is a multiloculated/septated well-circumscribed 19 x 6 x 6 mm fluid collection adjacent to the extensor carpi naris tendon consistent with a ganglion cys t. TFCC appears to be intact. The ligaments of the proximal carpal row are intact. The radial ulnar jane culation is normal. IMPRESSION: Well circumscribed multiloculated fluid collection in the radial volar aspect of the wrist most consi stent with a ganglion cyst. [facility], , 07/27/2024 12:35 PM
== END | disposition home or self-care (01) ==
LOC: RADMRIMAIN 13:08
PROVIDERS: ATTEND Orthopaedic Surgery
DX: M25.531 Pain in right wrist (principal)